=== PATIENT | female | born 1990 | race Caucasian/White ===

== ENCOUNTER 2020-10-20 12:19 | Emergency (ER) | payer MEDICAID ==
[2020-10-20] MEDS ORDERED: Ondansetron PF 4 MG/2 ML Vial ONE (13:07)
[2020-10-20] MEDS ORDERED: Lorazepam 2 MG/ML VIAL ONE (13:08)
[2020-10-20] MEDS ORDERED: Ketorolac Tromethamine 30 MG/ML VIAL ONE (13:09)
[2020-10-20 13:19] LABS: #Eosinphils 0.1 10x3/uL (0.0-0.5); #Monocytes 0.3 10x3/uL (0.0-1.1); #Neutrophils 5.1 10x3/uL (1.5-8.4); %Basophils 0.3 % (0.0-2.0); %Eosinophils 1.4 % (0.0-6.0); %Lymphocytes 19.8 % (18.0-47.0); %Monocytes 4.8 % (0.0-10.0); %Neutrophils 73.3 % (40.0-75.0); Hemoglobin 13.1 g/dL (12.0-15.5); Mean Corpuscular Hemoglobin 26.7 pg (27.0-33.0); Mean Corpuscular Volume 83.5 fl (81.6-98.3); Mean Platelet Volume 11.6 fl (7.4-10.4); Platelet Count 174 10x3/uL (150-450); RBC Distribution Width 13.6 % (11.5-14.5); Red Blood Cell (RBC) Count 4.91 10x6/uL (3.90-5.03); White Blood Cell (WBC) Count 6.9 10x3/uL (3.5-10.5)
[2020-10-20 13:39] LABS: BHCG - Serum Negative (NEGATIVE); Pregs Control Background? CLEAR/WHITE (CLR/WHITE); Pregs Control Bar Appear? YES (CONTROL BAR)
[2020-10-20 13:44] LABS: Bilirubin Neg (Negative); Blood, Urine Negative (Negative); Clarity Clear (Clear); Glucose, Urine (Dipstick) Normal (Negative); Ketone, Urine Negative (Negative); Leukocyte Negative (Negative); Nitrite Negative (Negative); Protein, Urine (Dipstick) Negative (Neg-Trace); Urobilinogen Normal mg/dL (Less than 2)
[2020-10-20 13:47] LABS: ALT (SGPT) 19 U/L (8-55); AST (SGOT) 13 U/L (5-34); Albumin 4.5 g/dL (3.5-5.0); Alkaline Phosphatase 58 U/L (40-110); Anion Gap 12 mmol/L (10-20); BUN (Urea Nitrogen) 11 mg/dL (7.0-18.7); Bilirubin, Total 0.4 mg/dL (0.2-1.2); Calc. Creatinine Clearance 0 mL/min (70-130); Calcium 9.2 mg/dL (7.8-10.44); Carbon Dioxide 24 mmol/L (22-29); Chloride 108 mmol/L (98-107); Globulin 2.6 g/dL (2.4-3.5); Glucose 119 mg/dL (70-105); Lipase 28 U/L (8-78); Potassium 3.8 mmol/L (3.5-5.1); Protein, Total 7.1 g/dL (6.0-8.3); Sodium 140 mmol/L (136-145)
[2020-10-20 14:20] LABS: HIV (1/2) Antibody/Antigen Non-Reactive (NonReactive); HIV 1/2 INDEX 0.04 S/CO (<1.00)
== END 2020-10-20 15:40 | disposition home or self-care (01) ==
LOC: CSHERS 12:19
DX: N28.89 Other specified disorders of kidney and ureter (principal); Z20.6 Contact with and (suspected) exposure to human immunodeficiency virus [HIV]; F17.210 Nicotine dependence, cigarettes, uncomplicated
CPT/HCPCS: 80053; 81003; 83690; 84703; 85025; 87389; 94760; 96374; 96375; J1885; J2060; J2405

== ENCOUNTER 2021-01-21 10:07 | Inpatient (IN) | payer SELFPAY ==
[2021-01-21] MEDS ORDERED: Zolpidem Tartrate 5 MG TAB PO PRN (11:28)
[2021-01-21] MEDS ORDERED: hydrALAZINE 20 MG/ML VIAL SLOW IVP PRN (11:28)
[2021-01-21] MEDS ORDERED: diphenhydrAMINE 50 MG/ML VIAL IVP PRN (11:28)
[2021-01-21 13:36] LABS: #Eosinphils 0.2 10x3/uL (0.0-0.5); #Monocytes 0.4 10x3/uL (0.0-1.1); #Neutrophils 4.5 10x3/uL (1.5-8.4); %Basophils 0.4 % (0.0-2.0); %Eosinophils 2.5 % (0.0-6.0); %Lymphocytes 24.1 % (18.0-47.0); %Monocytes 5.8 % (0.0-10.0); %Neutrophils 66.8 % (40.0-75.0); Hemoglobin 12.5 g/dL (12.0-15.5); Mean Corpuscular Hemoglobin 27.2 pg (27.0-33.0); Mean Corpuscular Volume 82.4 fl (81.6-98.3); Mean Platelet Volume 11.6 fl (7.4-10.4); Platelet Count 169 10x3/uL (150-450); White Blood Cell (WBC) Count 6.7 10x3/uL (3.5-10.5)
[2021-01-21 13:48] LABS: ALT (SGPT) 16 U/L (8-55); AST (SGOT) 22 U/L (5-34); Albumin 4.4 g/dL (3.5-5.0); Alkaline Phosphatase 57 U/L (40-110); Anion Gap 13 mmol/L (10-20); BUN (Urea Nitrogen) 9 mg/dL (7.0-18.7); Bilirubin, Total 0.4 mg/dL (0.2-1.2); Calc. Creatinine Clearance 0 mL/min (70-130); Calcium 9.5 mg/dL (7.8-10.44); Carbon Dioxide 26 mmol/L (22-29); Chloride 108 mmol/L (98-107); Globulin 2.6 g/dL (2.4-3.5); Glucose 82 mg/dL (70-105); Potassium 4.5 mmol/L (3.5-5.1); Sodium 142 mmol/L (136-145)
[2021-01-21 13:59] LABS: SARS-CoV-2 NAA Rapid Test Not Detected (NotDetected)
[2021-01-21] MEDS: Acetaminophen 500 MG TAB PO SCH ×3 (15:24→23:19)
[2021-01-21 15:28] VITALS: BMI 32.4
[2021-01-21] MEDS: D5 1/2 NS w/20 mEq KCL 1,000 ML IV SCH ×2 (15:45→21:51)
[2021-01-21] MEDS: Docusate 100 MG CAP PO SCH (21:51)
[2021-01-22] MEDS: Acetaminophen 500 MG TAB PO SCH ×3 (06:28→17:48)
[2021-01-22] MEDS: D5 1/2 NS w/20 mEq KCL 1,000 ML IV SCH ×2 (06:58→14:23)
[2021-01-22] MEDS ORDERED: Bupivacaine PF 0.5% 30 ML VIAL ONE ×2 (08:21→09:04)
[2021-01-22] MEDS ORDERED: EPINEPHrine 1 MG/ML AMP ONE (09:03)
[2021-01-22] MEDS ORDERED: Fentanyl 100 MCG/2 ML VIAL ONE ×4 (09:04→11:53)
[2021-01-22] MEDS ORDERED: Midazolam HCl 2 mg/2 ml Vial ONE ×2 (09:04→09:25)
[2021-01-22] MEDS ORDERED: Dexamethasone 4 mg/ml Vial ONE (09:05)
[2021-01-22] MEDS: Docusate 100 MG CAP PO SCH ×2 (09:16→19:41)
[2021-01-22] MEDS ORDERED: Lidocaine 2% PF 5 ML VIAL ONE (09:36)
[2021-01-22] MEDS ORDERED: PROPOFOL 20 ML ONE (09:36)
[2021-01-22] MEDS ORDERED: Rocuronium Bromide 10 MG/ML (10ML VIAL) ONE (09:39)
[2021-01-22] MEDS ORDERED: Dexamethasone 20 MG/5 ML VIAL ONE (09:57)
[2021-01-22] MEDS ORDERED: Ondansetron PF 4 MG/2 ML Vial ONE (09:57)
[2021-01-22] MEDS ORDERED: Glycopyrrolate 0.2 MG/ML 5 ML SYRINGE ONE (11:03)
[2021-01-22] MEDS: Morphine 4 MG/ML VIAL SLOW IVP PRN ×2 (13:45→19:47)
[2021-01-22] MEDS: HYDROcodone/Acetaminophen 5/325 mg Tablet PO PRN (15:21)
[2021-01-22] MEDS: Ondansetron PF 4 MG/2 ML Vial IVP PRN (19:46)
[2021-01-23] MEDS: Acetaminophen 500 MG TAB PO SCH ×3 (00:54→06:30)
[2021-01-23] MEDS: Morphine 4 MG/ML VIAL SLOW IVP PRN ×2 (00:54→05:48)
[2021-01-23] MEDS: Ondansetron PF 4 MG/2 ML Vial IVP PRN ×2 (00:54→05:56)
[2021-01-23] MEDS: D5 1/2 NS w/20 mEq KCL 1,000 ML IV SCH ×2 (03:42→08:23)
[2021-01-23 07:37] VITALS: BP 103/69; TEMP 97.5
[2021-01-23 07:58] LABS: Hemoglobin 12.9 g/dL (12.0-15.5); Mean Corpuscular HGB CONC 32.7 g/dL (32.0-36.0); Mean Corpuscular Hemoglobin 27.3 pg (27.0-33.0); Mean Corpuscular Volume 83.7 fl (81.6-98.3); Mean Platelet Volume 11.9 fl (7.4-10.4); Platelet Count 181 10x3/uL (150-450); RBC Distribution Width 13.7 % (11.5-14.5); Red Blood Cell (RBC) Count 4.72 10x6/uL (3.90-5.03); White Blood Cell (WBC) Count 14.5 10x3/uL (3.5-10.5)
[2021-01-23 08:14] LABS: Anion Gap 16 mmol/L (10-20); BUN (Urea Nitrogen) 12 mg/dL (7.0-18.7); Calc. Creatinine Clearance 101 mL/min (70-130); Calcium 9.6 mg/dL (7.8-10.44); Carbon Dioxide 20 mmol/L (22-29); Chloride 107 mmol/L (98-107); Glucose 111 mg/dL (70-105); Potassium 5.1 mmol/L (3.5-5.1); Sodium 138 mmol/L (136-145)
[2021-01-23] MEDS: HYDROcodone/Acetaminophen 5/325 mg Tablet PO PRN (08:23)
[2021-01-23] MEDS: Docusate 100 MG CAP PO SCH (08:23)
== END 2021-01-23 11:31 | disposition home or self-care (01) | DRG 661 ==
LOC: CSHERS 10:07 → CSHTELE 14:24
PROVIDERS: ADMIT Urology; ATTEND Urology
PROC: 0TT14ZZ Resection of Left Kidney, Percutaneous Endoscopic Approach (ICD-10-PCS; principal; 2021-01-22)
DX: N28.89 Other specified disorders of kidney and ureter (principal); F17.210 Nicotine dependence, cigarettes, uncomplicated; Z20.822 Contact with and (suspected) exposure to COVID-19
CPT/HCPCS: 36415; 80048; 80053; 85025; 85027; 86850; 86900; 86901; 88307; 99284; J0171; J0690; J1100; J2001; J2250; J2270; J2405; J2704; J3010; J3480; S0020; U0002

== ENCOUNTER 2021-06-16 15:15 | Emergency (ER) | payer SELFPAY, OTHER ==
[2021-06-16 16:14] LABS: #Eosinphils 0.2 10x3/uL (0.0-0.5); #Monocytes 0.4 10x3/uL (0.0-1.1); #Neutrophils 6.3 10x3/uL (1.5-8.4); %Basophils 0.4 % (0.0-2.0); %Eosinophils 1.9 % (0.0-6.0); %Lymphocytes 15.2 % (18.0-47.0); %Monocytes 4.8 % (0.0-10.0); %Neutrophils 77.5 % (40.0-75.0); Hemoglobin 12.2 g/dL (12.0-15.5); Mean Corpuscular HGB CONC 31.5 g/dL (32.0-36.0); Mean Corpuscular Hemoglobin 26.6 pg (27.0-33.0); Mean Corpuscular Volume 84.3 fl (81.6-98.3); Platelet Count 164 10x3/uL (150-450); RBC Distribution Width 13.8 % (11.5-14.5); Red Blood Cell (RBC) Count 4.59 10x6/uL (3.90-5.03); White Blood Cell (WBC) Count 8.1 10x3/uL (3.5-10.5)
[2021-06-16 16:18] LABS: BHCG - Serum Negative (NEGATIVE); Pregs Control Background? CLEAR/WHITE (CLR/WHITE); Pregs Control Bar Appear? YES (CONTROL BAR)
[2021-06-16 16:25] LABS: ALT (SGPT) 9 U/L (8-55); AST (SGOT) 14 U/L (5-34); Albumin 4.7 g/dL (3.5-5.0); Alkaline Phosphatase 60 U/L (40-110); Anion Gap 13 mmol/L (10-20); BUN (Urea Nitrogen) 15 mg/dL (7.0-18.7); Bilirubin, Total 0.5 mg/dL (0.2-1.2); Calc. Creatinine Clearance 0 mL/min (70-130); Carbon Dioxide 23 mmol/L (22-29); Chloride 108 mmol/L (98-107); Globulin 2.7 g/dL (2.4-3.5); Glucose 93 mg/dL (70-105); Lipase 22 U/L (8-78); Potassium 3.8 mmol/L (3.5-5.1); Protein, Total 7.4 g/dL (6.0-8.3); Sodium 140 mmol/L (136-145)
[2021-06-16] MEDS ORDERED: Morphine 4 MG/ML VIAL ONE (16:38)
[2021-06-16 16:39] LABS: Bilirubin Neg (Negative); Blood, Urine 250 (Negative); Clarity Bloody (Clear); Glucose, Urine (Dipstick) Normal (Negative); Ketone, Urine 5 mg/dL (Negative); Leukocyte 25 (Negative); Nitrite Negative (Negative); Specific Gravity, Urine 1.015 (1.002-1.036); Urobilinogen Normal mg/dL (Less than 2)
[2021-06-16] MEDS ORDERED: Ondansetron PF 4 MG/2 ML Vial ONE (16:40)
[2021-06-16 16:46] LABS: Protein, Urine (Dipstick) 100 mg/dl (Neg-Trace)
[2021-06-16 16:50] LABS: Bacteria/HPF 1+ HPF (None Seen); RBC/HPF Greater than 50 HPF (0-3); Squamous Epithelial 0-3 HPF (0-3)
== END 2021-06-16 18:42 | disposition home or self-care (01) ==
LOC: CSHERS 15:15
DX: N39.0 Urinary tract infection, site not specified (principal); F17.200 Nicotine dependence, unspecified, uncomplicated
CPT/HCPCS: 74177; 76856; 80053; 81003; 81015; 83690; 84703; 85025; 96374; 96375; J2270; J2405